=== PATIENT | female | born 1965 | race Caucasian/White ===

== ENCOUNTER 2024-02-05 19:03 | Observation (INO) | payer OTHER ==
[2024-02-05 20:29] LABS: Basophils % (A) 0 %; Eosinophils # (A) 0.1 k/uL (0-0.7); Eosinophils % (A) 1 %; HGB 12.9 gm/dL (11.4-16.0); Lymphocytes # (A) 0.9 k/uL (1.0-4.8); Lymphocytes % (A) 13 %; MCH 31.9 pg (25.0-35.0); MCV 96.7 fL (80.0-100.0); Monocytes # (A) 0.5 k/uL (0-1.0); Monocytes % (A) 7 %; Neutrophils # (A) 5.2 k/uL (1.3-7.7); Neutrophils % (A) 76 %; Platelet Count 199 k/uL (150-450); RBC 4.03 m/uL (3.80-5.40); RDW 12.1 % (11.5-15.5); WBC 6.9 k/uL (3.8-10.6)
[2024-02-05] MEDS: HYDROmorphone 0.5 MG/0.5 ML SYRINGE IVP STA ×3 (20:39→22:19)
[2024-02-05 20:46] LABS: ALT 14 U/L (4-34); AST 32 U/L (14-36); African American GFR (CKD) >90 (>60 ml/min/1.73 sqM); Alkaline Phosphatase 73 U/L (38-126); Anion Gap 3 mmol/L; Blood Urea Nitrogen 10 mg/dL (7-17); Calcium 8.7 mg/dL (8.4-10.2); Carbon Dioxide 22 mmol/L (22-30); Chloride 100 mmol/L (98-107); Glucose 94 mg/dL (74-99); Magnesium 1.5 mg/dL (1.6-2.3); Non-African American GFR(CKD) >90 (>60 ml/min/1.73 sqM); Potassium 4.2 mmol/L (3.5-5.1); Sodium 125 mmol/L (137-145); Total Bilirubin 0.8 mg/dL (0.2-1.3); Total Protein 6.4 g/dL (6.3-8.2)
[2024-02-05] MEDS ORDERED: NALOXONE 0.4 MG/ML 1 ML VIAL IV PRN (21:04)
--- NOTE | 2024-02-05 21:06 | ED ---
General Adult HPI - General Chief complaint: Recheck/Abnormal Lab/Rx Stated complaint: Left flank pain, low sodium, dizziness Time Seen by Provider: 02/05/24 19:21 Source: patient, RN notes reviewed, old records reviewed Mode of arrival: ambulatory Limitations: no limitations - History of Present Illness Initial comments: 58 yo female presenting as transfer from outside hospital for hyponatremia. Patient had initially gone to the ER with left flank pain, left lower quadrant abdominal pain. She was noted to have a hydronephrosis without obstructing stone on CT. This was reported as a chronic finding according to the patient. She had normal CBC but did have a sodium of 125 and was sent for further evaluation and treatment. She is a daily drinker drinking predominantly beer. - Related Data Home Medications Medication Instructions Recorded Confirmed Aspirin 325 mg PO DAILY 07/14/19 02/05/24 Atorvastatin [Lipitor] 80 mg PO HS 07/14/19 02/05/24 atenoloL [Tenormin] 25 mg PO DAILY 07/14/19 02/05/24 ALPRAZolam [Xanax] 0.25 mg PO TID PRN 02/05/24 02/05/24 Albuterol Inhaler [Ventolin Hfa 2 puff INHALATION RT-Q4H PRN 02/05/24 02/05/24 Inhaler] Citalopram Hydrobromide [CeleXA] 40 mg PO DAILY 02/05/24 02/05/24 Fluticasone Nasal [place] [Flonase 2 spray EA NOSTRIL DAILY 02/05/24 02/05/24 Nasal [place]] Ibuprofen [Motrin] 800 mg PO Q8H PRN 02/05/24 02/05/24 Nitroglycerin Sl Tabs [Nitrostat] 0.4 mg SUBLINGUAL Q5M PRN 02/05/24 02/05/24 Omeprazole 40 mg PO DAILY 02/05/24 02/05/24 Umeclidinium Brm/Vilanterol Tr 1 puff INHALATION RT-DAILY 02/05/24 02/05/24 [Anoro Ellipta 62.5-25 Mcg INH] Allergies Allergy/AdvReac Type Severity Reaction Status Date / Time No Known Allergies Allergy Verified 02/05/24 19:16 Review of Systems ROS Statement: Those systems with pertinent positive or pertinent negative responses have been documented in the HPI. ROS Other: All systems not noted in ROS Statement are negative. Past Medical History Past Medical History: Coronary Artery Disease (CAD), GERD/Reflux, Hyperlipidemia, Hypertension History of Any Multi-Drug Resistant Organisms: None Reported Past Surgical History: Section, Heart Catheterization With Stent, Tubal Ligation Additional Past Surgical History / Comment(s): STENT -RIGHT LEG FOR BLOCKAGE Past Anesthesia/Blood Transfusion Reactions: No Reported Reaction Date of Last Stent Placement:: 11/2015 Past Psychological History: Anxiety Smoking Status: Never smoker Past Alcohol Use History: Daily Past Drug Use History: None Reported - Past Family History Mother Family Medical History: No Reported History General Exam Limitations: no limitations General appearance: alert, in no apparent distress Head exam: Present: atraumatic, normocephalic Eye exam: Present: normal appearance, PERRL ENT exam: Present: normal exam Neck exam: Present: normal inspection. Absent: tenderness, meningismus Respiratory exam: Present: normal lung sounds bilaterally. Absent: respiratory distress, wheezes Cardiovascular Exam: Present: regular rate, normal rhythm GI/Abdominal exam: Present: soft, tenderness (LLQ). Absent: distended Neurological exam: Present: alert, oriented X3, CN II-XII intact. Absent: motor sensory deficit Psychiatric exam: Present: normal affect, normal mood Skin exam: Present: warm, dry, intact. Absent: cyanosis, diaphoretic Course Vital Signs 02/05/24 19:14 Temperature 97.5 F L Pulse Rate 60 Respiratory 15 Rate Blood Pressure 158/95 O2 Sat by Pulse 95 Oximetry Medical Decision Making - Medical Decision Making Was pt. sent in by a medical professional or institution (, PA, AGRICULTURAL TECHNICIAN, urgent care, hospital, or [facility]...) When possible be specific @ -Transfer from outside hospital for hyponatremia Did you speak to anyone other than the patient for history (EMS, parent, family, police, friend...)? What history was obtained from this source @ -[No] Did you review nursing and triage notes (agree or disagree)? Why? @ -[I reviewed and agree with nursing and triage notes] Were old charts reviewed (outside hosp., previous admission, EMS record, old EKG, old radiological studies, urgent care reports/EKG's, [facility] records)? Report findings @ -[No old charts were reviewed] Differential Diagnosis (chest pain, altered mental status, abdominal pain women, abdominal pain men, vaginal bleeding, weakness, fever, dyspnea, syncope, headache, dizziness, GI bleed, back pain, seizure, CVA, palpatations, mental health, musculoskeletal)? @ -[not applicable] EKG interpreted by me (3pts min.). @ -[As above] X-rays interpreted by me (1pt min.). @ -[None done] CT interpreted by me (1pt min.). @ -[None done] U/S interpreted by me (1pt. min.). @ -[None done] What testing was considered but not performed or refused? (CT, X-rays, U/S, labs)? Why? @ -[None] What meds were considered but not given or refused? Why? @ -[None] Did you discuss the management of the patient with other professionals (professionals i.e. , PA, AGRICULTURAL TECHNICIAN, lab, RT, psych nurse, social and human services assistant, appointment clerk, teacher, environmental conservation officer, case maker)? Give summary @ -[No] Was smoking cessation discussed for >3mins.? @ -[No] Was critical care preformed (if so, how long)? @ -[No] Were there social determinants of health that impacted care today? How? (Homelessness, low income, unemployed, alcoholism, drug addiction, transportation, low edu. Level, literacy, decrease access to med. care, custodial, rehab)? @ -[No] Was there de-escalation of care discussed even if they declined (Discuss DNR or withdrawal of care, Hospice)? DNR status @ -[No] What co-morbidities impacted this encounter? (DM, HTN, Smoking, COPD, CAD, Cancer, CVA, ARF, Chemo, Hep., AIDS, mental health diagnosis, sleep apnea, morbid obesity)? @ -[None] Was patient admitted / discharged? Hospital course, mention meds given and route, prescriptions, significant lab abnormalities, going to OR and other pertinent info. @ -[58-year-old female transfer for hyponatremia. Patient will be placed on normal saline. Nephrology placed on consult. Patient hemodynamically stable.NoNoNoDefaultDefaultNoNoNoNoneNoNoNoNoNoNoneNoneNone doneNone doneNone doneAs aboveNot applicableNo old charts were reviewedI reviewed and agree with nursing and triage notesNo Undiagnosed new problem with uncertain prognosis? @ -[No] Drug Therapy requiring intensive monitoring for toxicity (Heparin, Nitro, Insulin, Cardizem)? @ -[No] Were any procedures done? @ -[No] Diagnosis/symptom? @Hyponatremia Acute, or Chronic, or Acute on Chronic? @ -[acute Uncomplicated (without systemic symptoms) or Complicated (systemic symptoms)? @ -[default] Side effects of treatment? @ -[No] Exacerbation, Progression, or Severe Exacerbation? @ -[No] Poses a threat to life or bodily function? How? (Chest pain, [place], [place], pneumonia, PE, COPD, DKA, ARF, appy, cholecystitis, CVA, Diverticulitis, Homicidal, Suicidal, threat to staff... and all critical care pts) @ -[No] - Lab Data Result diagrams: 02/05/24 20:24 02/05/24 20:24 Lab Results 02/05/24 02/05/24 Range/Units 20:24 20:24 WBC 6.9 (3.8-10.6) k/uL RBC 4.03 (3.80-5.40) m/uL Hgb 12.9 (11.4-16.0) gm/dL Hct 39.0 (34.0-46.0) % MCV 96.7 (80.0-100.0) fL MCH 31.9 (25.0-35.0) pg MCHC 33.0 (31.0-37.0) g/dL RDW 12.1 (11.5-15.5) % Plt Count 199 (150-450) k/uL MPV 7.0 Neutrophils % 76 % Lymphocytes % 13 % Monocytes % 7 % Eosinophils % 1 % Basophils % 0 % Neutrophils # 5.2 (1.3-7.7) k/uL Lymphocytes # 0.9 L (1.0-4.8) k/uL Monocytes # 0.5 (0-1.0) k/uL Eosinophils # 0.1 (0-0.7) k/uL Basophils # 0.0 (0-0.2) k/uL Sodium 125 L (137-145) mmol/L Potassium 4.2 (3.5-5.1) mmol/L Chloride 100 (98-107) mmol/L Carbon Dioxide 22 (22-30) mmol/L Anion Gap 3 mmol/L BUN 10 (7-17) mg/dL Creatinine 0.74 (0.52-1.04) mg/dL Est GFR (CKD-EPI)AfAm >90 (>60 ml/min/1.73 sqM) Est GFR (CKD-EPI)NonAf >90 (>60 ml/min/1.73 sqM) Glucose 94 (74-99) mg/dL Calcium 8.7 (8.4-10.2) mg/dL Magnesium 1.5 L (1.6-2.3) mg/dL Total Bilirubin 0.8 (0.2-1.3) mg/dL AST 32 (14-36) U/L ALT 14 (4-34) U/L Alkaline Phosphatase 73 (38-126) U/L Total Protein 6.4 (6.3-8.2) g/dL Albumin 4.0 (3.5-5.0) g/dL Disposition Clinical Impression: Hyponatremia Disposition: ADMITTED IP TO THIS [facility] Condition: Stable Is patient prescribed a controlled substance at d/c from ED?: No Referrals: Bryan Pang MD [Primary Care Provider] - 1-2 days Time of Disposition: 21:37
[2024-02-05] MEDS: MAGNESIUM SULFATE-D5W PMX 1 GM in DEXTROSE/WATER 1 100ML.BAG IVPB ONE (21:13)
[2024-02-05] MEDS: SODIUM CHLORIDE 0.9% 1,000 ML IV SCH (21:13)
[2024-02-05] MEDS: HYDROmorphone 0.5 MG/0.5 ML SYRINGE IM STA (22:16)
[2024-02-06] MEDS: HYDROmorphone 0.5 MG/0.5 ML SYRINGE IVP PRN (03:16)
[2024-02-06 06:37] LABS: African American GFR (CKD) >90 (>60 ml/min/1.73 sqM); Anion Gap 2 mmol/L; Blood Urea Nitrogen 11 mg/dL (7-17); Calcium 8.9 mg/dL (8.4-10.2); Carbon Dioxide 27 mmol/L (22-30); Chloride 102 mmol/L (98-107); Glucose 119 mg/dL (74-99); Non-African American GFR(CKD) 81 (>60 ml/min/1.73 sqM); Sodium 131 mmol/L (137-145)
--- NOTE | 2024-02-06 12:01 | P.NPCON ---
History of Present Illness - Reason for Consult hyponatremia - History of Present Illness Reason for consultation: Hyponatremia History of present illness: Patient is a 58-year-old female seen in renal consultation for hyponatremia. Patient initially went to another facility with left flank pain and abdominal pain and was subsequently transferred here for further workup. She was noted to have hydronephrosis on the left side. Patient states she has had hydronephrosis on the left side for several years and follows with urology outpatient. Patient sodium level yesterday afternoon was noted to be 125. This admission was also 125 and improved to 131 this morning. She denies use of thiazide diuretics. Denies history of malignancy. Denies vomiting or diarrhea. Oral intake has been fair. She admits to drinking about 1 glass of water daily, 4 to 5 cans of pop daily and also 5 to 6 cans of beer on a daily basis. She takes Motrin as needed. No edema. No hematuria or dysuria. No history of kidney disease. Vital signs are stable. General: No acute distress. HEENT: Head exam is unremarkable. LUNGS: No audible rhonchi or wheezes. HEART: Rate and Rhythm are regular. ABDOMEN: Nontender. EXTREMITITES: No edema. Past Medical History Past Medical History: Coronary Artery Disease (CAD), GERD/Reflux, Hyperlipidemia, Hypertension History of Any Multi-Drug Resistant Organisms: None Reported Past Surgical History: Section, Heart Catheterization With Stent, Tubal Ligation Additional Past Surgical History / Comment(s): STENT -RIGHT LEG FOR BLOCKAGE Past Anesthesia/Blood Transfusion Reactions: No Reported Reaction Date of Last Stent Placement:: 11/2015 Past Psychological History: Anxiety Smoking Status: Never smoker Past Alcohol Use History: Daily Past Drug Use History: None Reported - Past Family History Mother Family Medical History: No Reported History Medications and Allergies Home Medications Medication Instructions Recorded Confirmed Type Atorvastatin [Lipitor] 80 mg PO HS 07/14/19 02/05/24 History RX: Aspirin 325 mg PO DAILY 07/14/19 02/05/24 History atenoloL [Tenormin] 25 mg PO DAILY 07/14/19 02/05/24 History ALPRAZolam [Xanax] 0.25 mg PO TID PRN 02/05/24 02/05/24 History Albuterol Inhaler [Ventolin Hfa 2 puff INHALATION RT-Q4H PRN 02/05/24 02/05/24 History Inhaler] Citalopram Hydrobromide [CeleXA] 40 mg PO DAILY 02/05/24 02/05/24 History Fluticasone Nasal [place] [Flonase 2 spray EA NOSTRIL DAILY 02/05/24 02/05/24 History Nasal [place]] Ibuprofen [Motrin] 800 mg PO Q8H PRN 02/05/24 02/05/24 History Nitroglycerin Sl Tabs [Nitrostat] 0.4 mg SUBLINGUAL Q5M PRN 02/05/24 02/05/24 History RX: Omeprazole 40 mg PO DAILY 02/05/24 02/05/24 History Umeclidinium Brm/Vilanterol Tr 1 puff INHALATION RT-DAILY 02/05/24 02/05/24 History [Anoro Ellipta 62.5-25 Mcg INH] Allergies Allergy/AdvReac Type Severity Reaction Status Date / Time No Known Allergies Allergy Verified 02/05/24 19:16 Physical Exam Vitals: Vital Signs Temp Pulse Pulse Resp BP BP Pulse Ox 02/06/24 08:17 97.9 F 64 18 121/68 97 02/06/24 03:12 59 L 16 137/57 96 02/05/24 23:11 63 16 109/82 96 02/05/24 21:16 67 16 168/92 94 L 02/05/24 19:14 97.5 F L 60 15 158/95 95 Intake and Output 02/05/24 02/06/24 02/06/24 22:59 06:59 14:59 Other: Weight 54.431 kg Results - Lab Results Most recent lab results Calcium 8.9 mg/dL (8.4-10.2) 02/06/24 05:59 Magnesium 2.0 mg/dL (1.6-2.3) 02/06/24 05:59 02/05/24 20:24 02/06/24 05:59 Assessment and Plan Plan: Assessment: 1. Hyponatremia with component of hypovolemia and excess fluid intake. Sodium level 125 yesterday and is 131 today. 2. Hypomagnesemia from poor intake and alcohol use. Replaced. Better. 3. Chronic left-sided hydronephrosis. 4. Alcohol abuse. Plan: Hep-Lock IV fluids. Add fluid restriction. Encouraged oral intake. Advised patient to increase protein intake and to limit fluid intake to less than 60 ounces per day upon discharge. Check TSH. Thank you for the consultation. I will continue to follow the patient with you during her hospital stay.
[2024-02-06] MEDS ORDERED: ALBUTEROL NEBULIZED 2.5 MG/3 ML INHALATION PRN (12:28)
[2024-02-06] MEDS ORDERED: NITROGLYCERIN SL TABS 0.4 MG TAB SUBLINGUAL PRN (12:28)
[2024-02-06] MEDS: ENOXAPARIN 40 MG/0.4 ML SYRINGE SQ SCH (13:02)
[2024-02-06] MEDS: CITALOPRAM HYDROBROMIDE 20 MG TAB PO SCH (13:02)
[2024-02-06] MEDS: atenoloL 25 MG TAB PO SCH ×2 (13:03→20:30)
[2024-02-06] MEDS: PANTOPRAZOLE 40 MG TABLET PO SCH (13:03)
[2024-02-06] MEDS: FORMOTEROL FUMARATE 20 MCG/2 ML NEBU INHALATION SCH (15:43)
[2024-02-06] MEDS: ATORVASTATIN 80 MG TAB PO SCH (20:30)
[2024-02-06] MEDS: ACETAMINOPHEN TAB 325 MG TAB PO PRN (22:14)
[2024-02-06] MEDS: ALPRAZolam 0.25 MG TAB PO PRN (22:14)
--- NOTE | 2024-02-06 22:27 | P.HPIM ---
History of Present Illness H&P Date: 02/06/24 Chief Complaint: Left abdominal pain This is a pleasant 58-year-old patient who follows with Dr. Pang. Patient presents for about a week having left-sided abdominal pain. Sharp. Off-and-on present. Patient been taking Motrin 800 mg twice a day. Had some nausea. Patient had a EGD colonoscopy about 2 years ago that was negative. Denied any fever and chills. Patient was transferred from an outside hospital 1 to have a sodium of 125. A CT scan showed left-sided hydronephrosis without any obvious obstruction. Patient drinks anywhere from 4-5 beers a day. At her baseline her bowel pattern is variable with sometimes hard stools sometimes loose stools. That has a bowel movement every day Review of systems: GEN.: Tired EYES: None HEENT: None NECK: None RESPIRATORY: None CARDIOVASCULAR: None GASTROINTESTINAL: As above] GENITOURINARY: None MUSCULOSKELETAL: None LYMPHATICS: None HEMATOLOGICAL: None PSYCHIATRY: None NEUROLOGICAL: None Social history: Lives with his clark Myers Smokes over a pack a day for close to 40 years. Drinks about 4-5 beers a day. Physical examination: VITAL SIGNS: 97.9, 64, 18, 121 x 68, 97% room air GENERAL: BMI 21.9, reclining bed awake not in distress. EYES: Pupils equal. Conjunctiva janes l. HEENT: External appearance of nose and ears normal, oral cavity grossly normal. NECK: JVD not raised; masses not palpable. HEART: First and second heart sounds are normal; no edema. LUNGS: Respiratory rate normal; decreased breath sounds mild wheezing. ABDOMEN: Soft, left upper abdominal mild tenderness, no guarding rigidity, liver spleen not palpable, no masses palpable. PSYCH: Alert and oriented x3; mood and affect janes l. MUSCULOSKELETAL:No Clubbing/cyanosis;muscles-grossly intact NEUROLOGICAL: Cranial nerves grossly intact; no facial asymmetry, power and sensation grossly intact. LYMPHATICS: No lymph nodes palpable in the axilla and neck INVESTIGATIONS, reviewed in the clinical context: February 05: Sodium 131 February 04: White count 6.9 hemoglobin 12.9 platelets 199, sodium 125 potassiu m 4.2 creatinine 0.74 INVESTIGATIONS, reviewed in the clinical context: Outside hospital: White count 7.9 hemoglobin 14 platelets 285 sodium 125 potassium 4.2 BUN [address] scan abdomen: Gallstones. Moderate left-sided hydronephrosis. Evidence of left kidney atrophy. Assessment plan: -Left upper abdominal pain. CT scan is showing evidence of moderate left-sided hydronephrosis. No obvious obstruction reported. Already dilatation of the ureter. This could be a calyceal rupture. Urology consulted -Hyponatremia likely hypoosmolar. Patient is of thin disposition. Just drinks about 4-5 beers a day. Fluid restriction -COPD and a current smoker Atrovent 4 times daily. Anoro Ellipta -Chronic nicotine dependence cigarette smoker Nicotine patch -CAD with stent 2015 Tenormin. Lipitor. Aspirin. -Essential hypertension Tenormin 25 mg nightly -Depression/anxiety Celexa 40 mg a day -GERD Omeprazole -PAD with stent in both the legs Patient on aspirin Lipitor -Full code Care was discussed with the patient. Consult urology. Past Medical History Past Medical History: Coronary Artery Disease (CAD), GERD/Reflux, Hy perlipidemia, Hypertension History of Any Multi-Drug Resistant Organisms: None Reported Past Surgical History: Section, Heart Catheterization With Stent, Tubal Ligation Additional Past Surgical History / Comment(s): STENT -RIGHT LEG FOR BLOCKAGE Past Anesthesia/Blood Transfusion Reactions: No Reported Reaction Date of Last Stent Placement:: 11/2015 Past Psychological History: Anxiety Smoking Status: Never smoker Past Alcohol Use History: Daily Past Drug Use History: None Reported - Past Family History Mother Family Medical History: No Reported History Medications and Allergies Home Medications Medication Instructions Recorded Confirmed Type Aspirin 325 mg PO DAILY 07/14/19 02/05/24 History Atorvastatin [Lipitor] 80 mg PO HS 07/14/19 02/05/24 History atenoloL [Tenormin] 25 mg PO HS 07/14/19 02/06/24 History ALPRAZolam [Xanax] 0.25 mg PO TID PRN 02/05/24 02/05/24 History Albuterol Inhaler [Ventolin Hfa 2 puff INHALATION RT-Q4H PRN 02/05/24 02/05/24 History Inhaler] Citalopram Hydrobromide [CeleXA] 40 mg PO DAILY 02/05/24 02/05/24 History Fluticasone Nasal [place] [Flonase 2 spray EA NOSTRIL DAILY 02/05/24 02/05/24 History Nasal [place]] Ibuprofen [Motrin] 800 mg PO Q8H PRN 02/05/24 02/05/24 History Nitroglycerin Sl Tabs [Nitrostat] 0.4 mg SUBLINGUAL Q5M PRN 02/05/24 02/05/24 History Omeprazole 40 mg PO DAILY 02/05/24 02/05/24 History Umeclidinium Brm/Vilanterol Tr 1 puff INHALATION RT-DAILY 02/05/24 02/05/24 Hist ory [Anoro Ellipta 62.5-25 Mcg INH] Allergies Allergy/AdvReac Type Severity Reaction Status Date / Time No Known Allergies Allergy Verified 02/05/24 19:16 Physical Exam Vitals: Vital Signs Temp Pulse Pulse Resp BP BP Pulse Ox 02/06/24 08:17 97.9 F 64 18 121/68 97 02/06/24 03:12 59 L 16 137/57 96 02/05/24 23:11 63 16 109/82 96 02/05/24 21:16 67 16 168/92 94 L 02/05/24 19:14 97.5 F L 60 15 158/95 95 Intake and Output 02/05/24 02/06/24 02/06/24 22:59 06:59 14:59 Other: Voiding Method Toilet Weight 54.431 kg Results CBC & Chem 7: 02/05/24 20:24 02/06/24 05:59 Labs: Abnormal Lab Results - Last 24 Hours (Table) 02/05/24 02/05/24 02/06/24 Range/Units 20:24 20:24 05:59 Lymphocytes # 0.9 L (1.0-4.8) k/uL Sodium 125 L 131 L (137-145) mmol/L Glucose 119 H (74-99) mg/dL Magnesium 1.5 L (1.6-2.3) mg/dL
[2024-02-06] MEDS: NICOTINE 21MG/24HR PATCH TRANSDERM SCH (22:40)
[2024-02-07 07:40] VITALS: RESP 16
[2024-02-07] MEDS: IPRATROPIUM 0.5 MG/2.5 ML NEBU INHALATION SCH (08:54)
[2024-02-07 09:42] LABS: BUN/Creat Ratio 11.14 Ratio (12.00-20.00); Blood Urea Nitrogen 7.8 mg/dL (9.0-27.0); Calcium 8.1 mg/dL (8.7-10.3); Carbon Dioxide 21.3 mmol/L (21.6-31.8); Chloride 102 mmol/L (96-109); Glucose 156 mg/dL (70-110); Magnesium 1.9 mg/dL (1.5-2.4); Sodium 135 mmol/L (135-145)
[2024-02-07] MEDS: NAPROXEN 250 MG TAB PO SCH (12:02)
[2024-02-07] MEDS: IOPAMIDOL CONTRAST (ORAL USE) VIAL PO PRN (13:06)
--- NOTE | 2024-02-07 13:19 | P.GSCN ---
History of Present Illness Consult date: 02/07/24 Reason for Consult: Left hydronephrosis History of present illness: This is a 58-year-old female patient of Dr. Nugent that follows up with him for a chronic left UPJ obstruction. She presented to the hospital with severe left flank pain associated with nausea. Denies any dysuria or gross hematuria. She was initially seen in [place] and at that point she underwent a CT abdomen pelvis that showed evidence of a left-sided UPJ obstruction with cortical thinning, of note this is chronic finding. Her creatinine is stable at 0.5 which is at her baseline. No previous renal surgeries, or history of kidney stones. This morning on evaluation she continues to have left-sided flank pain Review of Systems - Constitutional Denies fever, Denies weight loss - Cardiovascular Denies chest pain, Denies shortness of breath - Gastrointestinal Reports abdominal pain - Genitourinary Genitourinary: Reports flank pain, Denies dysuria, Denies hematuria Past Medical History Past Medical History: Coronary Artery Disease (CAD), GERD/Reflux, Hyperlipidemia, Hypertension History of Any Multi-Drug Resistant Organisms: None Reported Past Surgical History: Section, Heart Catheterization With Stent, Tubal Ligation Additional Past Surgical History / Comment(s): STENT -RIGHT LEG FOR BLOCKAGE Past Anesthesia/Blood Transfusion Reactions: No Reported Reaction Date of Last Stent Placement:: 11/2015 Past Psychological History: Anxiety Smoking Status: Never smoker Past Alcohol Use History: Daily Past Drug Use History: None Reported - Past Family History Mother Family Medical History: No Reported History Medications and Allergies Home Medications Medication Instructions Recorded Confirmed Type Aspirin 325 mg PO DAILY 07/14/19 02/05/24 History Atorvastatin [Lipitor] 80 mg PO HS 07/14/19 02/05/24 History atenoloL [Tenormin] 25 mg PO HS 07/14/19 02/06/24 History ALPRAZolam [Xanax] 0.25 mg PO TID PRN 02/05/24 02/05/24 History Albuterol Inhaler [Ventolin Hfa 2 puff INHALATION RT-Q4H PRN 02/05/24 02/05/24 History Inhaler] Citalopram Hydrobromide [CeleXA] 40 mg PO DAILY 02/05/24 02/05/24 History Fluticasone Nasal [place] [Flonase 2 spray EA NOSTRIL DAILY 02/05/24 02/05/24 History Nasal [place]] Ibuprofen [Motrin] 800 mg PO Q8H PRN 02/05/24 02/05/24 History Nitroglycerin Sl Tabs [Nitrostat] 0.4 mg SUBLINGUAL Q5M PRN 02/05/24 02/05/24 History Omeprazole 40 mg PO DAILY 02/05/24 02/05/24 History Umeclidinium Brm/Vilanterol Tr 1 puff INHALATION RT-DAILY 02/05/24 02/05/24 History [Anoro Ellipta 62.5-25 Mcg INH] Allergies Allergy/AdvReac Type Severity Reaction Status Date / Time No Known Allergies Allergy Verified 02/05/24 19:16 Surgical - Exam Vital Signs Temp Pulse Resp BP Pulse Ox 97.5 F L 60 15 158/95 95 02/05/24 19:14 02/05/24 19:14 02/05/24 19:14 02/05/24 19:14 02/05/24 19:14 - General no distress, moderate pain - Eyes normal ocular movement, no pale - ENT normal nares, normal mucosa - Respiratory normal expansion, normal respiratory effort - Abdomen Abdomen: soft, non tender, no distended - Psychiatric oriented to time, oriented to person, oriented to place Results - Labs 02/05/24 20:24 02/07/24 05:08 Abnormal Lab Results - Last 24 Hours (Table) 02/07/24 Range/Units 05:08 Carbon Dioxide 21.3 L (21.6-31.8) mmol/L BUN 7.8 L (9.0-27.0) mg/dL BUN/Creatinine Ratio 11.14 L (12.00-20.00) Ratio Glucose 156 H (70-110) mg/dL Calcium 8.1 L (8.7-10.3) mg/dL Diabetes panel 02/07/24 Range/Units 05:08 Sodium 135 (135-145) mmol/L Potassium 4.0 (3.5-5.5) mmol/L Chloride 102 (96-109) mmol/L Carbon Dioxide 21.3 L (21.6-31.8) mmol/L BUN 7.8 L (9.0-27.0) mg/dL Creatinine 0.7 (0.6-1.5) mg/dL Glucose 156 H (70-110) mg/dL Calcium 8.1 L (8.7-10.3) mg/dL Thyroid panel 02/07/24 Range/Units 05:08 TSH 3.270 (0.350-5.500) UIU/ML Calcium panel 02/07/24 Range/Units 05:08 Calcium 8.1 L (8.7-10.3) mg/dL Pituitary panel 02/07/24 Range/Units 05:08 Sodium 135 (135-145) mmol/L Potassium 4.0 (3.5-5.5) mmol/L Chloride 102 (96-109) mmol/L Carbon Dioxide 21.3 L (21.6-31.8) mmol/L BUN 7.8 L (9.0-27.0) mg/dL Creatinine 0.7 (0.6-1.5) mg/dL Glucose 156 H (70-110) mg/dL Calcium 8.1 L (8.7-10.3) mg/dL TSH 3.270 (0.350-5.500) UIU/ML Adrenal panel 02/07/24 Range/Units 05:08 Sodium 135 (135-145) mmol/L Potassium 4.0 (3.5-5.5) mmol/L Chloride 102 (96-109) mmol/L Carbon Dioxide 21.3 L (21.6-31.8) mmol/L BUN 7.8 L (9.0-27.0) mg/dL Creatinine 0.7 (0.6-1.5) mg/dL Glucose 156 H (70-110) mg/dL Calcium 8.1 L (8.7-10.3) mg/dL Assessment and Plan Assessment: 58-year-old female with history of left UPJ obstruction, discussed with her given her symptoms she indicated she has been having recurrent left flank pain I do recommend intervention for her UPJ obstruction. Discussed I will upload her images, if there is evidence of significant cortical thinning then at that point she will benefit from a left simple nephrectomy, but if there is normal amount of parenchyma then the preferred approach would be left pyeloplasty. But discussed with her either way we will not plan on doing intervention at this time but will continue on pain control, if pain fails to improve despite c onservative management we can consider a stent, but discussed with her given the recurrent pain I do recommend proceeding with a left robotic pyeloplasty versus a simple nephrectomy based on the finding on CT as an outpatient
--- NOTE | 2024-02-07 13:52 | P.GSCN ---
History of Present Illness Consult date: 02/07/24 History of present illness: CHIEF COMPLAINT: Abdominal pain HISTORY OF PRESENT ILLNESS: This is a 58-year-old female who presented the hospital with complaints of left sided abdominal pain. Patient reports that she has had this pain intermittently over the last 3 years. Wednesday morning around 4 AM she had left sided abdominal and flank pain. Pain continued to worsen throughout the day even after taking Motrin. She initially went to [facility] for evaluation and was transferred to [facility]. CAT scan at [facility] reported moderate left hydronephrosis no obvious obstructing mass or calculus identified. Findings could be due to chronic stricture. Some fat stranding changes around the kidney could represent ruptured calyx. Patient seen by urology service. Patient reports increased nausea due to the pain. She is having flatus. It has been a few days since her last bowel movement. Patient does drink alcohol daily. She has about 5-7 beers a day. Patient also admitted with hyponatremia now improved. She is tolerating regular diet. PAST MEDICAL HISTORY: Coronary Artery Disease (CAD), GERD/Reflux, Hyperlipidemia, Hypertension, p eripheral vascular disease PAST SURGICAL HISTORY: Section, Heart Catheterization With Stent, Tubal Ligation,STENT -RIGHT LEG FOR BLOCKAGE MEDICATIONS: See below ALLERGIES: See below SOCIAL HISTORY: No illicit drug use. Daily alcohol use REVIEW OF SYSTEMS: CONSTITUTIONAL: Denies fever or chills. HEENT: Denies blurred vision, vision changes, or eye pain. Denies hemoptysis CARDIOVASCULAR: Denies chest pain or pressure. RESPIRATORY: No shortness of breath. GASTROINTESTINAL: See HPI for pertinent findings HEMATOLOGIC: Denies bleeding disorders. GENITOURINARY: Denies any blood in urine or increased urinary frequency. SKIN: Denies pruitis. Denies rash. PHYSICAL EXAM: VITAL SIGNS: Reviewed GENERAL: Well-developed in no acute distress. HEENT: No sclera icterus. Extraocular movements grossly intact. Moist buccal mucosa. Head is atraumatic, normocephalic. No nasal drainage. ABDOMEN: Soft. Nondistended. Tenderness with palpation left side of abdomen and left flank NEUROLOGIC: Alert and oriented. Cranial nerves II through XII grossly intact. LABORATORY DATA: WBC 6.9 Hgb 12.9 platelets 199 Sodium 125 up to 135 potassium 4.0 creatinine 0.7 Magnesium 1.5 up to 1.9 IMAGING: CT scan findings as stated above ASSESSMENT: 1. Left flank and left side abdominal pain 2. Moderate left hydronephrosis noted on CAT scan. Patient with history of left UPJ obstruction. Followed by urology and recommending conservative management at this time with possible future intervention for her UPJ obstruction. PLAN: -Discussed case with medicine service. CT scan abdomen pelvis with oral and IV contrast ordered -Continue regular diet -Further recommendations forthcoming after CT results reviewed Physician Locks Tender note has been reviewed by physician. Signing provider agrees with the documented findings, assessment, and plan of care. Past Medical History Past Medical History: Coronary Artery Disease (CAD), GERD/Reflux, Hype rlipidemia, Hypertension History of Any Multi-Drug Resistant Organisms: None Reported Past Surgical History: Section, Heart Catheterization With Stent, Tubal Ligation Additional Past Surgical History / Comment(s): STENT -RIGHT LEG FOR BLOCKAGE Past Anesthesia/Blood Transfusion Reactions: No Reported Reaction Date of Last Stent Placement:: 11/2015 Past Psychological History: Anxiety Smoking Status: Never smoker Past Alcohol Use History: Daily Past Drug Use History: None Reported - Past Family History Mother Family Medical History: No Reported History Medications and Allergies Home Medications Medication Instructions Recorded Confirmed Type Aspirin 325 mg PO DAILY 07/14/19 02/05/24 History Atorvastatin [Lipitor] 80 mg PO HS 07/14/19 02/05/24 History atenoloL [Tenormin] 25 mg PO HS 07/14/19 02/06/24 History ALPRAZolam [Xanax] 0.25 mg PO TID PRN 02/05/24 02/05/24 History Albuterol Inhaler [Ventolin Hfa 2 puff INHALATION RT-Q4H PRN 02/05/24 02/05/24 History Inhaler] Citalopram Hydrobromide [CeleXA] 40 mg PO DAILY 02/05/24 02/05/24 History Fluticasone Nasal [place] [Flonase 2 spray EA NOSTRIL DAILY 02/05/24 02/05/24 History Nasal [place]] Ibuprofen [Motrin] 800 mg PO Q8H PRN 02/05/24 02/05/24 History Nitroglycerin Sl Tabs [Nitrostat] 0.4 mg SUBLINGUAL Q5M PRN 02/05/24 02/05/24 History Omeprazole 40 mg PO DAILY 02/05/24 02/05/24 History Umeclidinium Brm/Vilanterol Tr 1 puff INHALATION RT-DAILY 02/05/24 02/05/24 History [Anoro Ellipta 62.5-25 Mcg INH] Allergies Allergy/AdvReac Type Severity Reaction Status Date / Time No Known Allergies Allergy Verified 02/05/24 19:16 Surgical - Exam Vital Signs Temp Pulse Resp BP Pulse Ox 97.5 F L 60 15 158/95 95 02/05/24 19:14 02/05/24 19:14 02/05/24 19:14 02/05/24 19:14 02/05/24 19:14 Results - Labs 02/05/24 20:24 02/07/24 05:08 Abnormal Lab Results - Last 24 Hours (Table) 02/07/24 Range/Units 05:08 Carbon Dioxide 21.3 L (21.6-31.8) mmol/L BUN 7.8 L (9.0-27.0) mg/dL BUN/Creatinine Ratio 11.14 L (12.00-20.00) Ratio Glucose 156 H (70-110) mg/dL Calcium 8.1 L (8.7-10.3) mg/dL Diabetes panel 02/07/24 Range/Units 05:08 Sodium 135 (135-145) mmol/L Potassium 4.0 (3.5-5.5) mmol/L Chloride 102 (96-109) mmol/L Carbon Dioxide 21.3 L (21.6-31.8) mmol/L BUN 7.8 L (9.0-27.0) mg/dL Creatinine 0.7 (0.6-1.5) mg/dL Glucose 156 H (70-110) mg/dL Calcium 8.1 L (8.7-10.3) mg/dL Thyroid panel 02/07/24 Range/Units 05:08 TSH 3.270 (0.350-5.500) UIU/ML Calcium panel 02/07/24 Range/Units 05:08 Calcium 8.1 L (8.7-10.3) mg/dL Pituitary panel 02/07/24 Range/Units 05:08 Sodium 135 (135-145) mmol/L Potassium 4.0 (3.5-5.5) mmol/L Chloride 102 (96-109) mmol/L Carbon Dioxide 21.3 L (21.6-31.8) mmol/L BUN 7.8 L (9.0-27.0) mg/dL Creatinine 0.7 (0.6-1.5) mg/dL Glucose 156 H (70-110) mg/dL Calcium 8.1 L (8.7-10.3) mg/dL TSH 3.270 (0.350-5.500) UIU/ML Adrenal panel 02/07/24 Range/Units 05:08 Sodium 135 (135-145) mmol/L Potassium 4.0 (3.5-5.5) mmol/L Chloride 102 (96-109) mmol/L Carbon Dioxide 21.3 L (21.6-31.8) mmol/L BUN 7.8 L (9.0-27.0) mg/dL Creatinine 0.7 (0.6-1.5) mg/dL Glucose 156 H (70-110) mg/dL Calcium 8.1 L (8.7-10.3) mg/dL
[2024-02-07 14:23] VITALS: BP 161/75; TEMP 98.3
--- NOTE | 2024-02-07 15:42 | CT ---
EXAMINATION TYPE: CT abdomen pelvis w con DATE OF EXAM: 02/07/2024 COMPARISON: None HISTORY: Left side abd. pain CT DLP: 474.5 mGycm Automated exposure control for dose reduction was used. TECHNIQUE: Helical acquisition of images was performed from the lung bases through the pelvis. CONTRAST: Performed with Oral Contrast and with IV Contrast, patient injected with 100 mL of Isovue 300. FINDINGS: The lung bases are clear. There are gallstones but no gallbladder distention, wall thickening or pericholecystic fluid. There is no focal mass or organomegaly involving the liver, pancreas, spleen or adrenal glands. There is no solid renal mass or hydronephrosis and there is homogeneous contrast enhancement of the r enal parenchyma. There is a markedly enlarged parapelvic cyst left kidney which measures 6.6 x 7.4 cm . There are 2 small calcifications in the left kidney likely vascular calcifications. The caliber the abdominal aorta is normal is no retroperitoneal adenopathy or hemorrhage. The bowel loops are normal in caliber and there is no evidence of dilatation or obstruction. No infla mmatory changes are identified in the bowel wall or mesentery. There is no free intraperitoneal air or fluid. No pelvic mass, free fluid, abscess or adenopathy. There is surgical absence of uterus The osseous structures and soft tissues are intact. IMPRESSION: 1. 6.6 x 7.4 cm cyst of the left kidney which appears to be a parapelvic cyst. 2. Mild cholelithiasis. [facility], , 02/07/2024 3:40 PM
[2024-02-07 16:49] VITALS: PULSE 78
--- NOTE | 2024-02-07 20:03 | P.DS ---
Providers Date of admission: 02/05/24 21:04 Expected date of discharge: 02/07/24 Attending physician: Johnnie Chavez Consults: 02/05/24 21:04 Consult Physician Routine Consulting Provider: Thea Villanueva Consult Reason/Comments: Hyponatremia Do you want consulting provider notified?: Yes 02/06/24 13:25 Consult Physician Routine Consulting Provider: Carlton Alvarado Consult Reason/Comments: left hydronephrosis - left flank pain Do you want consulting provider notified?: Yes 02/07/24 11:25 Consult Physician Routine Consulting Provider: Kelvin Bartlett Consult Reason/Comments: left abd pain Do you want consulting provider notified?: Yes Primary care physician: [facility] Course: Chief Complaint: Left abdominal pain This is a pleasant 58-year-old patient who follows with Dr. Pang. Patient presents for about a week having left-sided abdominal pain. Sharp. Off-and-on present. Patient been taking Motrin 800 mg twice a day. Had some nausea. Patient had a EGD colonoscopy about 2 years ago that was negative. Denied any fever and chills. Patient was transferred from an outside hospital 1 to have a sodium of 125. A CT scan showed left-sided hydronephrosis without any obvious obstruction. Patient drinks anywhere from 4-5 beers a day. At her baseline her bowel pattern is variable with sometimes hard stools sometimes loose stools. That has a bowel movement every day February 06: Still having left-sided abdominal pain. No nausea vomiting. No blood in the urine. Did repeat a CT scan of the abdomen pelvis with oral contrast. Left-sided kidney cyst was noticed. General surgery Dr Bartlett was consulted. Not felt to be anything acutely surgical. Communicated with Dr. Estrella from urology. Patient will need an outpatient robotic pyeloplasty. He wanted to avoid putting a stent at this point. Patient very keen to go home. Hence is being discharged. Dr. Alvarado will communicate with the patient to set up a time. Later in the evening I did call the patient at home I did update with Dr. Alvarado and communicated. Questions were answered. Discussion and discharge planning more than 35 minutes Social history: Lives with his fiance Tobias. Smokes over a pack a day for close to 40 years. Drinks about 4-5 beers a day. Physical examination: VITAL SIGNS: 98.3, 64, 16, 160/75, 99% room GENERAL: Resting in bed EYES: Pupils equal. Conjunctiva janes l. HEENT: External appearance of nose and ears normal, oral cavity grossly normal. NECK: JVD not raised; masses not palpable. HEART: First and second heart sounds are normal; no edema. LUNGS: Respiratory rate normal; decreased breath sounds mild wheezing. ABDOMEN: Soft, left upper renal angle l mild tenderness, no guarding rigidity, liver spleen not palpable, no masses palpable. PSYCH: Alert and oriented x3; mood and affect janes l. INVESTIGATIONS, reviewed in the clinical context: CT scan abdomen pelvis with oral contrast: Left kidney cyst February 06: Potassium 4 creatinine 0.7 February 05: Sodium 131 February 04: White count 6.9 hemoglobin 12.9 platelets 199, sodium 125 potassium 4.2 creatinine 0.74 Outside hospital: White count 7.9 hemoglobin 14 platelets 285 sodium 125 potassium 4.2 BUN [address] scan abdomen: [Without contrast] gallstones. Moderate left-sided hydronephrosis. Evidence of left kidney atrophy. Assessment plan: -Left upper abdominal pain. Left-sided chronic hydronephrosis: Symptomatic Seen by Dr. Alvarado from urology Outpatient robotic pyeloplasty. Dr. Alvarado will contact the patient outpatient to set up an appointment for intervention -Hyponatremia likely hypoosmolar. Patient is of thin disposition. Just drinks about 4-5 beers a day. Fluid restriction -COPD and a current smoker Atrovent 4 times daily. Anoro Ellipta -Chronic nicotine dependence cigarette smoker Nicotine patch -CAD with stent 2015 Tenormin. Lipitor. Aspirin. -Essential hypertension Tenormin 25 mg nightly -Depression/anxiety Celexa 40 mg a day -GERD Omeprazole -PAD with stent in both the legs Patient on aspirin Lipitor -Full code Disposition: Home Past Medical History Past Medical History: Coronary Artery Disease (CAD), GERD/Reflux, Hyperlipidemia, Hypertension History of Any Multi-Drug Resistant Organisms: None Reported Past Surgical History: Section, Heart Catheterization With Stent, Tubal Ligation Additional Past Surgical History / Comment(s): STENT -RIGHT LEG FOR BLOCKAGE Past Anesthesia/Blood Transfusion Reactions: No Reported Reaction Date of Last Stent Placement:: 11/2015 Past Psychological History: Anxiety Smoking Status: Never smoker Past Alcohol Use History: Daily Past Drug Use History: None Reported Plan - Discharge Summary Discharge Rx Participant: Yes New Discharge Prescriptions: New Nicotine 21Mg/24Hr Patch [Habitrol] 1 patch TRANSDERM DAILY #30 patch Acetaminophen Tab [Tylenol] 650 mg PO Q6HR PRN tab PRN Reason: Mild Pain Or Fever > 100.5 Naproxen [Naprosyn] 250 mg PO Q8H #30 tab Continue Aspirin 325 mg PO DAILY Atorvastatin [Lipitor] 80 mg PO HS atenoloL [Tenormin] 25 mg PO HS Nitroglycerin Sl Tabs [Nitrostat] 0.4 mg SUBLINGUAL Q5M PRN PRN Reason: Chest Pain Citalopram Hydrobromide [CeleXA] 40 mg PO DAILY Omeprazole 40 mg PO DAILY Fluticasone Nasal [place] [Flonase Nasal [place]] 2 spray EA NOSTRIL DAILY Umeclidinium Brm/Vilanterol Tr [Anoro Ellipta 62.5-25 Mcg INH] 1 puff INHALATION RT-DAILY Albuterol Inhaler [Ventolin Hfa Inhaler] 2 puff INHALATION RT-Q4H PRN PRN Reason: Shortness Of Breath ALPRAZolam [Xanax] 0.25 mg PO TID PRN PRN Reason: Anxiety Discontinued Ibuprofen [Motrin] 800 mg PO Q8H PRN PRN Reason: Pain Or Fever > 100.5 Discharge Medication List Aspirin 325 mg PO DAILY 07/14/19 [History] Atorvastatin [Lipitor] 80 mg PO HS 07/14/19 [History] atenoloL [Tenormin] 25 mg PO HS 07/14/19 [History] ALPRAZolam [Xanax] 0.25 mg PO TID PRN 02/05/24 [History] Albuterol Inhaler [Ventolin Hfa Inhaler] 2 puff INHALATION RT-Q4H PRN 02/05/24 [History] Citalopram Hydrobromide [CeleXA] 40 mg PO DAILY 02/05/24 [History] Fluticasone Nasal [place] [Flonase Nasal [place]] 2 spray EA NOSTRIL DAILY 02/05/24 [History] Nitroglycerin Sl Tabs [Nitrostat] 0.4 mg SUBLINGUAL Q5M PRN 02/05/24 [History] Omeprazole 40 mg PO DAILY 02/05/24 [History] Umeclidinium Brm/Vilanterol Tr [Anoro Ellipta 62.5-25 Mcg INH] 1 puff INHALATION RT-DAILY 02/05/24 [History] Acetaminophen Tab [Tylenol] 650 mg PO Q6HR PRN tab 02/07/24 [Rx] Naproxen [Naprosyn] 250 mg PO Q8H #30 tab 02/07/24 [Rx] Nicotine 21Mg/24Hr Patch [Habitrol] 1 patch TRANSDERM DAILY #30 patch 02/07/24 [Rx] Follow up Appointment(s)/Referral(s): Carlton Alvarado MD [STAFF PHYSICIAN] - 1 Week Bryan Pang MD [Primary Care Provider] - 1-2 days Discharge Disposition: HOME SELF-CARE
== END 2024-02-07 17:40 | disposition home or self-care (01) ==
LOC: EC 19:03 → 6NMEDSUR 21:04
PROVIDERS: ADMIT Hospitalist; ATTEND Hospitalist
DX: E87.1 Hypo-osmolality and hyponatremia
CPT/HCPCS: 36415; 94640 ×4; 80053; 80048 ×2; 84443; 83735 ×3; 85025; 74177; G0378 ×3; J1650 ×2; J3475; J1170 ×3; Q9967; 96365; 96372; 96375; 96376; 99285

== ENCOUNTER → 2024-02-25 | Outpatient (CLI) | payer OTHER ==
[~2024-02-25] MED LIST: FUROSEMIDE 10 MG/ML 2 ML VIAL IV ONE
--- NOTE | 2024-02-25 14:28 | NM ---
EXAMINATION TYPE: NM lasix renogram DATE OF EXAM: 02/25/2024 COMPARISON: 02/07/2024 CT scan CLINICAL INDICATION: Female, 58 years old with history of N13.30 UNSPEC HYDRONEPHROSIS; Following administration of 9.9 mCi Tc 99m MAG3 with 20mg Lasix. Immediate images post injection FINDINGS: Left: 4.3 %. Right: 95.7 %. Max renal flow left: NA minutes. Max renal flow right: 9 minutes. Satisfactory accumulation of radiotracer within right renal collecting systems. There is reduced flow and uptake of radiotracer with no significant radiotracer seen within the left kidney. After the adm inistration of Lasix, there is prompt excretion from right collecting systems. T 1/2 left: NA minutes. T 1/2 right: 13 minutes minutes. IMPRESSION: No significant radiotracer uptake within the left kidney which is concordant with the severe hydronep hrosis noted by prior CT scan. [facility], , 02/25/2024 2:25 PM
== END | disposition home or self-care (01) ==
LOC: RADNMMAIN 12:56
PROVIDERS: ATTEND Urology
DX: N13.30 Unspecified hydronephrosis (principal)
CPT/HCPCS: 78708